=== PATIENT | female | born 1965 | race Caucasian/White ===

== ENCOUNTER 2019-09-12 02:19 | Emergency (ER) | payer BC ==
--- NOTE | 2019-09-12 03:14 | EDM.PDOC ---
ED HPI GENERAL MEDICAL PROBLEM - General Chief Complaint: Gastrointestinal Problem Stated Complaint: VOMITING Time Seen by Provider: 09/12/19 03:10 Source of Information: Reports: Patient History Limitations: Reports: No Limitations - History of Present Illness INITIAL COMMENTS - FREE TEXT/NARRATIVE: 54-year-old female who reports at approximately midnight, Tuesday night into Tuesday, she began to have nausea with diffuse abdominal cramping that progressively got worse through the night the knee and she has had vomiting 5 or 6 since then. The nausea has been pervasive and she has been unable to keep any fluids down. The abdominal pain has been persistent and she reports that it is a 9/10 at this point. It is a sharp and crampy type pain. The pain does not radiate. In addition on Tuesday prior to the abdominal pain and vomiting, she had diarrhea that was loose and watery but nonbloody and that has pretty much resolved. The pain is worse with palpation and with movement. Nothing has alleviated her symptoms. There are no other associated signs or symptoms. There are no other modifying factors. 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: Reports: Other (see below) (Nothing) abdominal pain Pain Score (Numeric/FACES): 9 - Related Data Allergies Allergy/AdvReac Type Severity Reaction Status Date / Time No Known Allergies Allergy Verified 07/12/16 15:50 Home Meds: Home Meds Hydrochlorothiazide/Lisinopril [Lisinopril-HCTZ 20-25 MG] 1 tab PO DAILY [History] Aspirin 81 mg PO DAILY 07/12/16 [History] Simvastatin [Zocor] 10 mg PO BEDTIME 07/12/16 [History] Venlafaxine [Effexor XR] 75 mg PO DAILY 07/12/16 [History] Ondansetron [Zofran ODT] 4 mg PO Q6H PRN #10 tab.dis 09/12/19 [Rx] raNITIdine HCl [Zantac] 150 mg PO BID #14 tablet 09/12/19 [Rx] Past Medical History HEENT History: Reports: Impaired Vision Cardiovascular History: Reports: Hypertension Gastrointestinal History: Reports: Chronic Constipation 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 (See Below) Other 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 OIL PUMPER History: Psychiatric History: Reports: Anxiety Endocrine/Metabolic History: Reports: Diabetes, Type II, Obesity/BMI 30+ - Past Surgical History Female Surgical History: Reports: Tubal Ligation Dermatological Surgical History: Reports: Skin Graft Social & Family History - Tobacco Use Smoking Status *Q: Never Smoker - Caffeine Use Caffeine Use: Reports: Soda - Living Situation & Occupation Occupation: Employed ED ROS GENERAL - Review of Systems Review Of Systems: See Below Constitutional: Reports: Malaise, Weakness HEENT: Reports: Other (Dry mouth) Respiratory: Reports: No Symptoms Cardiovascular: Reports: No Symptoms GI/Abdominal: Reports: Abdominal Pain, Diarrhea, Nausea, Vomiting : Reports: No Symptoms Musculoskeletal: Reports: No Symptoms Skin: Reports: Diaphoresis (Intermittent) Neurological: Denies: Dizziness Hematologic/Lymphatic: Reports: No Symptoms Immunologic: Reports: No Symptoms ED EXAM, GENERAL - Physical Exam Exam: See Below Exam Limited By: No Limitations General Appearance: Alert, Moderate Distress, Obese Eye Exam: Bilateral Eye: EOMI, Normal Inspection, PERRL Ears: Normal External Exam Ear Exam: Bilateral Ear: Auricle Normal Nose: Normal Inspection, Normal Mucosa, No Blood Throat/Mouth: Normal Lips, Normal Voice, No Airway Compromise, Other (Somewhat dry mucous membranes) Head: Atraumatic, Normocephalic Neck: Normal Inspection, Supple, Non-Tender, Full Range of Motion Respiratory/Chest: No Respiratory Distress, Lungs Clear, Normal Breath Sounds, No Accessory Muscle Use, Chest Non-Tender, Accessory Muscle Use Cardiovascular: Normal Peripheral Pulses, Regular Rate, Rhythm, No JVD Peripheral Pulses: 2+: Radial (L), Radial (R), Dorsalis Pedis (L), Dorsalis Pedis (R) GI/Abdominal: Normal Bowel Sounds, Soft, No Mass, Tender (Diffusely but more so in the epigastrium.). No: Hernia Extremities: Normal Inspection, Normal Range of Motion, Non-Tender, No Pedal Edema, Normal Capillary Refill, Pedal Edema Neurological: Alert, Oriented, Normal Cognition, No Motor/Sensory Deficits Psychiatric: Normal Affect Skin Exam: Warm, Dry, Intact, Normal Color, No Rash Course - Vital Signs Last Recorded V/S: Last Vital Signs Temp 37.0 C 09/12/19 04:19 Pulse 97 09/12/19 04:19 Resp 14 09/12/19 04:19 BP 149/89 H 09/12/19 04:19 Pulse Ox 95 09/12/19 04:19 - Orders/Labs/Meds Orders: Active Orders 24 hr Category Date Time Status Abdomen Pelvis w Cont [CT] Stat Exams 09/12/19 04:50 Taken Sodium Chloride 0.9% [Normal Saline] 1,000 ml Med 09/12/19 03:30 Active IV ASDIRECTED Sodium Chloride 0.9% [Saline Flush] Med 09/12/19 03:25 Active 10 ml FLUSH ASDIRECTED PRN Peripheral IV Insertion Adult [OM.PC] Routine Oth 09/12/19 03:25 Ordered Medication Orders Sodium Chloride (Normal Saline) 1,000 mls @ 150 mls/hr IV ASDIRECTED SAMIR Last Admin: 09/12/19 05:21 Dose: 150 mls/hr Sodium Chloride (Saline Flush) 10 ml FLUSH ASDIRECTED PRN PRN Reason: Keep Vein Open Last Admin: 09/12/19 04:17 Dose: 10 ml Labs: Laboratory Tests 09/12/19 09/12/19 09/12/19 Range/Units 03:46 03:46 03:46 WBC 5.3 (4.5-12.0) X10-3/uL RBC 4.59 (3.23-5.20) x10(6)uL Hgb 13.1 (11.5-15.5) g/dL Hct 39.0 (30.0-51.3) % MCV 85.1 (80-96) fL MCH 28.5 (27.7-33.6) pg MCHC 33.5 (32.2-35.4) g/dL RDW 13.8 (11.5-15.5) % Plt Count 298 (125-369) X10(3)uL MPV 8.7 (7.4-10.4) fL Neut % (Auto) 82.8 H (46-82) % Lymph % (Auto) 12.5 L (13-37) % Vigo % (Auto) 3.3 L (4-12) % Eos % (Auto) 1 (1.0-5.0) % Baso % (Auto) 0 (0-2) % Neut # (Auto) 4.3 (1.6-8.3) # Lymph # (Auto) 0.7 (0.6-5.0) # Vigo # (Auto) 0.2 (0.0-1.3) # Eos # (Auto) 0.1 (0.0-0.8) # Baso # (Auto) 0.0 (0.0-0.2) # Sodium 141 (135-145) mmol/L Potassium 4.3 (3.5-5.3) mmol/L Chloride 104 (100-110) mmol/L Carbon Dioxide 27 (21-32) mmol/L BUN 11 (7-18) mg/dL Creatinine 1.0 (0.55-1.02) mg/dL Est Cr Clr Drug Dosing TNP Estimated GFR (MDRD) 58 L (>60) BUN/Creatinine Ratio 11.0 (9-20) Glucose 188 H (80-116) mg/dL Calcium 8.9 (8.6-10.2) mg/dL Magnesium (1.8-2.5) mg/dL Total Bilirubin 0.4 (0.1-1.3) mg/dL AST 23 (5-25) IU/L ALT 33 (12-36) U/L Alkaline Phosphatase 82 (56-112) IU/L C-Reactive Protein 0.4 L (0.5-0.9) mg/dL Total Protein 7.6 (6.0-8.0) g/dL Albumin 4.1 (3.5-5.2) g/dL Globulin 3.5 g/dL Albumin/Globulin Ratio 1.2 Lipase 173 (73-393) U/L 09/12/19 Range/Units 03:46 WBC (4.5-12.0) X10-3/uL RBC (3.23-5.20) x10(6)uL Hgb (11.5-15.5) g/dL Hct (30.0-51.3) % MCV (80-96) fL MCH (27.7-33.6) pg MCHC (32.2-35.4) g/dL RDW (11.5-15.5) % Plt Count (125-369) X10(3)uL MPV (7.4-10.4) fL Neut % (Auto) (46-82) % Lymph % (Auto) (13-37) % Vigo % (Auto) (4-12) % Eos % (Auto) (1.0-5.0) % Baso % (Auto) (0-2) % Neut # (Auto) (1.6-8.3) # Lymph # (Auto) (0.6-5.0) # Vigo # (Auto) (0.0-1.3) # Eos # (Auto) (0.0-0.8) # Baso # (Auto) (0.0-0.2) # Sodium (135-145) mmol/L Potassium (3.5-5.3) mmol/L Chloride (100-110) mmol/L Carbon Dioxide (21-32) mmol/L BUN (7-18) mg/dL Creatinine (0.55-1.02) mg/dL Est Cr Clr Drug Dosing Estimated GFR (MDRD) (>60) BUN/Creatinine Ratio (9-20) Glucose (80-116) mg/dL Calcium (8.6-10.2) mg/dL Magnesium 2.0 (1.8-2.5) mg/dL Total Bilirubin (0.1-1.3) mg/dL AST (5-25) IU/L ALT (12-36) U/L Alkaline Phosphatase (56-112) IU/L C-Reactive Protein (0.5-0.9) mg/dL Total Protein (6.0-8.0) g/dL Albumin (3.5-5.2) g/dL Globulin g/dL Albumin/Globulin Ratio Lipase (73-393) U/L Meds: Medications Generic Name Dose Route Start Last Admin Trade Name Freq PRN Reason Stop Dose Admin Sodium Chloride 1,000 mls @ 150 mls/hr 09/12/19 03:30 09/12/19 05:21 Normal Saline IV 150 mls/hr ASDIRECTED SAMIR Administration Sodium Chloride 10 ml 09/12/19 03:25 09/12/19 04:17 Saline Flush FLUSH 10 ml ASDIRECTED PRN Administration Keep Vein Open Discontinued Medications Generic Name Dose Route Start Last Admin Trade Name Ebony PRN Reason Stop Dose Admin Hydromorphone HCl 1 mg 09/12/19 03:26 09/12/19 04:09 Dilaudid IVPUSH 09/12/19 03:27 1 mg ONETIME ONE Administration Sodium Chloride 1,000 mls @ 999 mls/hr 09/12/19 03:26 09/12/19 04:10 Normal Saline IV 09/12/19 04:26 999 mls/hr .BOLUS ONE Administration Promethazine HCl 25 mg/ Sodium 51 mls @ 200 mls/hr 09/12/19 04:51 09/12/19 05 :22 Chloride IV 09/12/19 05:06 200 mls/hr ONETIME ONE Administration Sodium Chloride 1,000 mls @ 999 mls/hr 09/12/19 07:22 09/12/19 07:27 Normal Saline IV 09/12/19 08:22 999 mls/hr .BOLUS ONE Administration Iopamidol 150 ml 09/12/19 06:06 09/12/19 06:22 Isovue-370 (76%) IV 09/12/19 06:07 140 ml ONETIME ONE Administration Ondansetron HCl 4 mg 09/12/19 03:26 09/12/19 04:09 Zofran IVPUSH 09/12/19 03:27 4 mg ONETIME ONE Administration Ondansetron HCl 4 mg 09/12/19 07:23 09/12/19 07:35 Zofran IVPUSH 09/12/19 07:24 4 mg ONETIME ONE Administration Pantoprazole Sodium 40 mg 09/12/19 03:26 09/12/19 04:09 Protonix Iv IVPUSH 09/12/19 03:27 40 mg ONETIME ONE Administration - Radiology Interpretation Free Text/Narrative:: CT scan of abdomen and pelvis showed no acute findings in the abdomen or pelvis but there was hepatomegaly with diffuse hepatic steatosis. - Re-Assessments/Exams Free Text/Narrative Re-Assessment/Exam: 09/12/19 07:35: The patient has received normal saline 1 L as a bolus and she is also received Dilaudid 1 mg IV, Zofran 4 mg IV and Phenergan 25 mg IV. She feels much improved. Her pain is down to a 4/10. She still has some mild nausea but she has had no further emesis. The plan will be to give her another liter bolus of normal saline and another dose of Zofran IV and then if she persists with increasing abdominal pain and no more vomiting, she will be discharged to home with prescription for Zofran. 09/12/19 08:51: Patient continues with other vomiting. Abdominal pain is down to about 2-3/10. The plan will be to discharge as above. Departure - Departure Time of Disposition: 08:55 Disposition: Home, Self-Care 01 Condition: Good (Improved) Clinical Impression: Vomiting Qualifiers: Vomiting type: unspecified Vomiting Intractability: intractable Nausea presence : with nausea Qualified Code(s): R11.2 - Nausea with vomiting, unspecified Gastritis Qualifiers: Gastritis type: unspecified gastritis Chronicity: acute Gastritis bleeding: without bleeding Qualified Code(s): K29.00 - Acute gastritis without bleeding - Discharge Information Prescriptions: Ondansetron [Zofran ODT] 4 mg PO Q6H PRN #10 tab.dis PRN Reason: Nausea/Vomiting raNITIdine HCl [Zantac] 150 mg PO BID #14 tablet Instructions: Abdominal Pain, Adult, [id number], Nausea and Vomiting, Adult, [id number], Dehydration, Adult, [id number] Referrals: PCP,None [Primary Care Provider] - Forms: ED Department Discharge Additional Instructions: Your blood tests were reassuringly normal. CAT scan of your abdomen and pelvis did not show any acute abnormality. You appear to have had a gastroenteritis or a viral infection of your intestines and the pain was most probably associated with inflammation of your stomach called gastritis. You should rest. You should drink small amounts of fluids frequently and advance your diet as tolerated beginning tomorrow. Medication as prescribed (Zofran 4 mg ODT, ranitidine 150 mg ). Back to the emergency department for vomiting, worsening abdominal pain, high fever or any other concerning sign or symptom. Sepsis Event Note - Focused Exam Vital Signs: Vital Signs Temp Pulse Resp BP Pulse Ox 09/12/19 04:19 37.0 C 97 14 149/89 H 95 09/12/19 02:30 36.8 C 100 16 152/99 H 98 Date Exam was Performed: 09/12/19 Time Exam was Performed: 08:51 - My Orders Last 24 Hours: My Active Orders 09/12/19 03:25 Sodium Chloride 0.9% [Saline Flush] 10 ml FLUSH ASDIRECTED PRN Peripheral IV Insertion Adult [OM.PC] Routine 09/12/19 03:30 Sodium Chloride 0.9% [Normal Saline] 1,000 ml IV ASDIRECTED 09/12/19 04:50 Abdomen Pelvis w Cont [CT] Stat - Assessment/Plan Last 24 Hours: My Active Orders 09/12/19 03:25 Sodium Chloride 0.9% [Saline Flush] 10 ml FLUSH ASDIRECTED PRN Peripheral IV Insertion Adult [OM.PC] Routine 09/12/19 03:30 Sodium Chloride 0.9% [Normal Saline] 1,000 ml IV ASDIRECTED 09/12/19 04:50 Abdomen Pelvis w Cont [CT] Stat
[2019-09-12] MEDS ORDERED: Sodium Chloride 0.9% 10 ML Syringe FLUSH PRN (03:25)
[2019-09-12] MEDS ORDERED: Sodium Chloride 0.9% 1,000 ML IV ONE ×2 (03:26→07:22)
[2019-09-12] MEDS ORDERED: Ondansetron 4 MG/2 ML SDV IVPUSH ONE ×2 (03:26→07:23)
[2019-09-12] MEDS ORDERED: HYDROmorphone 2 MG/ML SDV IVPUSH ONE (03:26)
[2019-09-12] MEDS ORDERED: Pantoprazole 40 MG Vial IVPUSH ONE (03:26)
[2019-09-12] MEDS ORDERED: Sodium Chloride 0.9% 1,000 ML IV SCH (03:30)
[2019-09-12] MEDS ORDERED: Promethazine 25 MG in Sodium Chloride 0.9% 50 ML IV ONE (04:51)
[2019-09-12] MEDS ORDERED: Iopamidol 755 MG/ML 150 ML Bottle IV ONE (06:06)
[2019-09-12 10:12] VITALS: BP 134/78; PULSE 72
== END 2019-09-12 09:18 | disposition home or self-care (01) ==
LOC: FB.ED 02:19
DX: K29.00 Acute gastritis without bleeding (principal); I10 Essential (primary) hypertension; E11.9 Type 2 diabetes mellitus without complications; F41.9 Anxiety disorder, unspecified; E66.9 Obesity, unspecified; Z68.41 Body mass index [BMI] 40.0-44.9, adult; Z79.899 Other long term (current) drug therapy; Z79.82 Long term (current) use of aspirin
CPT/HCPCS: 36415; 74177; 80053; 83690; 83735; 85025; 86140; 96361; 96374; 96375; 96376; 99285-25; C9113; J1170; J2405; J2550; J7030; J7050; Q9967

== ENCOUNTER 2022-10-11 09:26 | Emergency (ER) | payer BC ==
[2022-10-11] MEDS ORDERED: LORazepam 2 MG/ML SDV IM ONE (09:50)
[2022-10-11 11:18] LABS: ESTIMATED GFR 86 mL/min (>60)
[2022-10-11 11:39] LABS: ACETAMINOPHEN < 2 ug/mL (<2)
[2022-10-11 16:36] VITALS: BP 155/71; PULSE 66
== END 2022-10-11 16:28 | disposition home or self-care (01) ==
LOC: FB.ED 09:26
DX: F32.A Depression, unspecified (principal); F41.9 Anxiety disorder, unspecified; I10 Essential (primary) hypertension; E11.9 Type 2 diabetes mellitus without complications; E66.9 Obesity, unspecified; Z68.41 Body mass index [BMI] 40.0-44.9, adult; Z79.82 Long term (current) use of aspirin; Z79.899 Other long term (current) drug therapy; Z79.84 Long term (current) use of oral hypoglycemic drugs; Z20.822 Contact with and (suspected) exposure to COVID-19
CPT/HCPCS: 36415; 80053; 80143; 80179; 80307; 81001; 84439; 84443; 85025; 87635; 96372; 99284; J2060; U0002